=== PATIENT | male | born 1970 | race Asian ===

== ENCOUNTER 2021-05-03 10:49 | Emergency (ER) | payer MEDICAID, OTHER ==
[~2021-05-03] VITALS: Ht 167.6 cm; Wt 77.1 kg
[2021-05-03 10:57] VITALS: BP 122/71
[2021-05-03] MEDS ORDERED: CEPH500C2 PO (11:28)
[2021-05-03] MEDS ORDERED: VALA10002 PO (11:28)
== END 2021-05-03 11:44 | disposition home or self-care (01) ==
LOC: ER 10:53
DX: K12.0 Recurrent oral aphthae (principal); L98.9 Disorder of the skin and subcutaneous tissue, unspecified